=== PATIENT | male | born 1950 | race American Indian/Alaskan Native ===

== ENCOUNTER 2019-08-06 07:32 | Day surgery (SDC) | payer OTHER ==
--- NOTE | 2019-08-06 09:20 | Anesthesia Consultation ---
Anesthesia Consult and Med Hx Date of service: 08/06/19 - Airway Anesthetic Teeth Evaluation: Chipped (upper) ROM Head & Neck: Adequate Mental/Hyoid Distance: Adequate Mallampati Class: Class II Intubation Access Assessment: Probably Good - Pulmonary Exam CTA: Yes - Cardiac Exam Cardiac Exam: RRR - Pre-Operative Health Status ASA Pre-Surgery Classification: ASA3 Proposed Anesthetic Plan: MAC - Pulmonary Hx Sleep Apnea: Yes (cpap) - Cardiovascular System Hx Hypertension: Yes - Gastrointestinal Hx Gastroesophageal Reflux Disease: Yes - Endocrine Hx Non-Insulin Dependent Diabetes: Yes
--- NOTE | 2019-08-06 09:20 | Anesthesia Day of Surgery ---
Anesthesia Day of Surgery - Day of Surgery Patient Examined: Yes Patient H&P Reviewed: Yes Patient is NPO: Yes
[2019-08-06] MEDS ORDERED: SODIUM CHLORIDE 0.9% 1000 ML 1,000 ML IV SCH (09:30)
[2019-08-06] MEDS ORDERED: PROPOFOL 200 MG/20 ML VIAL IV ONE ×3 (10:03→10:32)
[2019-08-06] MEDS ORDERED: LIDOCAINE MPF (2%) 20 MG/1 ML VIAL 5 ML ONE (10:30)
[2019-08-06] MEDS ORDERED: PHENYLEPHRINE/NS 1,000 MCG/10 ML SYRINGE (OR USE) IV ONE ×4 (10:38→10:39)
--- NOTE | 2019-08-06 10:53 | Procedure Note ---
Date of procedure: 08/06/19 Pre-op diagnosis: GERD/ Colon Polyp Screening Post-op diagnosis: other (Moderate,Erosive Esophagitis/ Moderate, Hiatal Hernia/ Gastritis/ No Peptic,Ulcer disease noted/ Normal colonoscopy (no colon Polyps or Diverticular disease or Internal Hemorrhoids noted).) Procedure: EGD with biopsy and colonoscopy Anest[place]: [facility] [place] Surgeon: SHAWNEE ELLER Estimated blood loss: minimal Pathology: list Specimen disposition: to lab Condition: stable Disposition: other (Treat with PPI and advice about lifestyle changes as the patient has a Moderate,Hiatal Hernia. Avoid aspirin and NSAID for 4 days; otherwise resume home medication and follow up in 1 to 2 weeks ([phone]).)
--- NOTE | 2019-08-06 11:03 | Operative Report ---
PROCEDURE: Esophagogastroduodenoscopy with biopsy. INDICATIONS: This is a 69-year-old -[place] gentleman who has been having GERD symptoms. EGD was done to assess for the underlying complaints and for any underlying pathology. DESCRIPTION OF PROCEDURE: Procedure was done after getting informed consent with MAC anesthesia. Instrument was passed through the hypopharynx into the esophagus, which showed moderate erosive esophagitis. Photo documentation and biopsy was done. The stomach showed a moderate hiatal hernia on the retroverted view. Additional biopsy was done from the gastric antrum, gastric body, and angular incisura to rule out for H. pylori and atrophic gastritis. The pylorus was patent. The duodenum in the first and the second portion appeared normal. There was no evidence of any peptic ulcer disease and the pylorus was patent. There was minimal bleeding from the biopsy sites and no complications associated with the procedure. ASSESSMENT: Gastroesophageal reflux disease symptoms, moderate erosive esophagitis, moderate hiatal hernia, and gastritis. No peptic ulcer disease noted. Patent pylorus. PLAN: Plan is to treat the patient with PPI, have the patient to avoid aspirin and aspirin-related products for the next few days. Otherwise, resume home medication. A colonoscopy will be done as part of colon polyp screening and the patient will be asked to follow up in the office in 1-2 weeks' time. The procedure was done in the GI lab with assistance of the GI lab team, which included ISAAC Alvarez, orthopaedic technologist and with assistance of anesthesia. JOB# [id number] BRANDON/ILIANA
--- NOTE | 2019-08-06 11:06 | Operative Report ---
PROCEDURE: Colonoscopy. INDICATIONS: A 69-year-old -[place] gentleman who had an EGD done prior to the colonoscopy. EGD showed presence of moderate erosive esophagitis, moderate hiatal hernia and gastritis, but no peptic ulcer disease. The patient will be treated with PPI because of those findings. DESCRIPTION OF PROCEDURE: Colonoscopy was done after getting informed consent with MAC anesthesia. Initial rectal exam was unremarkable. Instrument was passed through the rectum onto the cecum, which was identified with ileocecal valve and the appendiceal orifice. Visualization was fair to good. Cecum, ascending colon, transverse colon, descending colon, and sigmoid showed normal mucosa. There was no evidence of any polyps, colitis or diverticular disease and the rectum appeared normal on the retroverted view. There were no biopsies done during this procedure. No bleeding or complications associated with the procedure. ASSESSMENT: Colon polyp screening, no colon polyps or diverticular disease or internal hemorrhoids noted. The patient is to be treated with PPI because of the EGD findings of moderate erosive esophagitis, gastritis and moderate hiatal hernia. The patient will also be advised about lifestyle changes because of the moderate hiatal hernia, asked to avoid aspirin and aspirin-related products for the next 3-4 days because of biopsies that were done during the EGD, but otherwise resume home medication and follow up in the office in 1-2 weeks' time. Procedure was done in the GI lab with assistance of the GI lab team, which included Mariela GRAY, the machine tool technician instructor and with assistance of anesthesia. JOB# [id number] BRANDON/ILIANA
[2019-08-06 11:24] VITALS: BP 114/78
--- NOTE | 2019-08-06 14:54 | Post Anesthesia Evaluation ---
- Post Anesthesia Evaluation Patient Participated: Yes Airway Patent: Yes Stable Respiratory Function: Yes Nausea/Vomiting: No Temp > 96.8F: Yes Pain Manageable: Yes Adequeate Hydration: Yes Anesthesia Complications: No Block Receding Appropriately: Not Applicable Patient on Ventilator: No
== END 2019-08-06 07:33 | disposition home or self-care (01) ==
LOC: GIO 07:32
DX: Z12.11 Encounter for screening for malignant neoplasm of colon (principal); K64.8 Other hemorrhoids; K29.50 Unspecified chronic gastritis without bleeding; K44.9 Diaphragmatic hernia without obstruction or gangrene; K21.0 Gastro-esophageal reflux disease with esophagitis; E78.00 Pure hypercholesterolemia, unspecified; I10 Essential (primary) hypertension; G47.30 Sleep apnea, unspecified; E11.9 Type 2 diabetes mellitus without complications; F32.9 Major depressive disorder, single episode, unspecified; Z79.84 Long term (current) use of oral hypoglycemic drugs
CPT/HCPCS: 43239; 45378; 82962; 88305; 88312; 88342; J2370; J2704